=== PATIENT | female | born 1970 | race Caucasian/White ===

== ENCOUNTER 2018-02-27 08:09 | Day surgery (SDC) | payer OTHER ==
[~2018-02-27 08:09] MED LIST: LACTATED RINGER'S 1,000 ML IV*; SUCCINYLCHOLINE CHLORIDE 100 MG/5 ML SYG IV
[2018-02-27] MEDS ORDERED: GLYCOPYRROLATE 0.4 MG INJ (11:36)
[2018-02-27] MEDS ORDERED: ROCURONIUM 50 MG INJ (11:36)
[2018-02-27] MEDS ORDERED: DEXAMETHASONE 4 MG/ML 1 ML INJ (11:36)
[2018-02-27] MEDS ORDERED: FENTAnyl 50 MCG/ML VIAL (11:36)
[2018-02-27] MEDS ORDERED: PROPOFOL 20 ML (11:36)
[2018-02-27] MEDS ORDERED: MIDAZOLAM 1 MG/ML 2 ML INJ (11:36)
[2018-02-27] MEDS ORDERED: NEOSTIGMINE 3 MG/3 ML SYRINGE (11:36)
[2018-02-27] MEDS ORDERED: CEFAZOLIN 1 GM INJ (11:36)
[2018-02-27] MEDS ORDERED: ONDANSETRON 4 MG INJ (11:36)
[2018-02-27] MEDS ORDERED: KETOROLAC 30 MG INJ (11:56)
[2018-02-27] MEDS ORDERED: OXYCODONE/ACETAMINOPHEN (5/325) TAB PO ×2 (12:00)
[2018-02-27] MEDS ORDERED: FENTAnyl 50 MCG/ML VIAL IV ×3 (12:00)
[2018-02-27] MEDS ORDERED: IPRATROPIUM (NEB) 0.5 MG/2.5 ML AMP HHN (12:00)
[2018-02-27] MEDS ORDERED: LABETALOL HCL 20MG INJ IV (12:00)
[2018-02-27] MEDS ORDERED: MIDAZOLAM 1 MG/ML 2 ML INJ IV (12:00)
[2018-02-27] MEDS ORDERED: HYDROmorphONE 1 MG/5 ML IV SYRINGE IV ×3 (12:00)
[2018-02-27] MEDS ORDERED: ALBUTEROL 0.083% (NEB) 2.5 MG/3 ML AMP HHN (12:00)
[2018-02-27] MEDS ORDERED: ONDANSETRON 4 MG INJ IV (12:00)
[2018-02-27] MEDS ORDERED: TRIMETHOBENZAMIDE 100 MG/ML VIAL IM (12:00)
[2018-02-27] MEDS ORDERED: MEPERIDINE 25 MG INJ IV (12:00)
[2018-02-27] MEDS ORDERED: DIPHENHYDRAMINE 50 MG INJ IV (12:00)
[2018-02-27] MEDS ORDERED: hydrALAzine 20 MG INJ IV (12:00)
[2018-02-27] MEDS ORDERED: EPHEDrine SULFATE 50 MG/5 ML SYG IV (12:00)
== END 2018-02-27 13:45 | disposition home or self-care (01) ==
LOC: SDS 08:09
DX: N93.9 Abnormal uterine and vaginal bleeding, unspecified (principal); E11.9 Type 2 diabetes mellitus without complications; E78.5 Hyperlipidemia, unspecified
CPT/HCPCS: 58120; 82962; 84703; 88305